=== PATIENT | female | born 1990 | race Caucasian/White ===

== ENCOUNTER 2019-03-22 22:36 | Emergency (ER) | payer OTHER ==
[~2019-03-22] VITALS: Ht 160 cm; Wt 70.3 kg
[2019-03-22 22:40] VITALS: BP_SYST 131
--- NOTE | 2019-03-23 00:37 | NUR ---
Patient to ER bed 8 to gown for evaluation. Side rails up. Report given to Kaylah PONCE.
--- NOTE | 2019-03-23 00:40 | NUR ---
PT complains of laceration to left elbow s/p leaning on jar and jar breaking cutting her. No active bleeding. No other injuries/complaints per patient or noted.
--- NOTE | 2019-03-23 01:15 | NUR ---
ER Dr. Stephens at bedside examining patient.
[2019-03-23] MEDS ORDERED: BACITRACIN 1 GM OINT TP ONE (01:30)
[2019-03-23] MEDS ORDERED: DIPH-TET-PERTUS Vaccine 0.5 ML VIAL (ADACEL) IM ONE (01:30)
[2019-03-23] MEDS ORDERED: LIDOCAINE/EPI 1% 1:100000 20 ML VIAL IJ ONE (01:30)
--- NOTE | 2019-03-23 02:01 | NUR ---
Patient has an approximately 2 cm laceration to left elbow. Dr. Stephens applied sutures using sterile technique. Edges well approximated. Site cleansed with iodine. No bleeding noted. Pt tolerated well.
[2019-03-23 02:25] VITALS: BP_SYST 127
--- NOTE | 2019-03-23 02:25 | NUR ---
Patient given written and verbal discharge instructions and verbalizes understanding. ER MD discussed with patient the results and treatment provided. Patient in stable condition. ID arm band removed. NO Rx given. Patient educated on pain management and to follow up with PMD. Pain Scale 0. Opportunity for questions provided and answered. Medication side effect fact sheet provided.
== END 2019-03-23 02:25 | disposition home or self-care (01) ==
LOC: SED 22:36
DX: S51.012A Laceration without foreign body of left elbow, initial encounter (principal); W25.XXXA Contact with sharp glass, initial encounter; X58.XXXA Exposure to other specified factors, initial encounter; Y93.89 Activity, other specified; Y92.89 Other specified places as the place of occurrence of the external cause; Y99.8 Other external cause status
CPT/HCPCS: 90715; 99283